=== PATIENT | male | born 1985 | race Two or more races ===

== ENCOUNTER 2019-04-12 16:25 | Inpatient (IN) | payer BC, OTHER ==
[2019-04-12 19:08] LABS: #Lymphocytes 1.8 thou/uL (1.20-3.40); #Monocytes 0.9 thou/uL (0.11-0.59); #Neutrophils 9.5 thou/uL (1.40-6.50); %Basophils 0.1 % (0.0-1.0); %Eosinophils 0.1 % (0.0-10.0); %Lymphocytes 14.8 % (21.0-51.0); %Monocytes 7.3 % (0.0-10.0); %Neutrophils 77.8 % (42.0-75.0); Hemoglobin 13.2 g/dL (14.0-18.0); Mean Corpuscular HGB CONC 32.2 g/dL (32.0-36.0); Mean Corpuscular Hemoglobin 27.7 pg (27.0-31.0); Mean Corpuscular Volume 86.1 fL (78.0-98.0); Mean Platelet Volume 7.7 fL (7.4-10.4); Platelet Count 196 thou/uL (130-400); RBC Distribution Width 11.8 % (11.5-14.5); Red Blood Cell (RBC) Count 4.75 mill/uL (4.70-6.10); White Blood Cell (WBC) Count 12.2 thou/uL (4.8-10.8)
[2019-04-12] MEDS ORDERED: Lidocaine 1% (PF) 30 ML VIAL ONE (19:20)
[2019-04-12 19:32] LABS: ALT (SGPT) 33 U/L (8-55); AST (SGOT) 21 U/L (5-34); Albumin 4.3 g/dL (3.5-5.0); Alkaline Phosphatase 73 U/L (40-110); Anion Gap 14 mmol/L (10-20); BUN (Urea Nitrogen) 10 mg/dL (8.9-20.6); Bilirubin, Total 0.8 mg/dL (0.2-1.2); Calc. Creatinine Clearance 0 mL/min (70-130); Calcium 9.3 mg/dL (7.8-10.44); Carbon Dioxide 28 mmol/L (22-29); Chloride 100 mmol/L (98-107); Estimated GFR-MDRD Greater than 90; Globulin 3.7 g/dL (2.4-3.5); Glucose 109 mg/dL (70-105); Potassium 3.9 mmol/L (3.5-5.1); Sodium 138 mmol/L (136-145)
--- NOTE | 2019-04-12 19:34 | CT ---
CT HEAD WITHOUT IV CONTRAST COMPARISON: None HISTORY: Headache this started 2 days ago. TECHNIQUE: Axial CT imaging at 5 mm intervals from vertex through skull base without contrast FINDINGS: There is no evidence of an acute infarction, hemorrhage, mass effect, or midline shift. The ventricul ar system is normal in size, shape, and position. There are air-fluid level seen in each sphenoid sinus as well as involving the left sphenoid sinus. T here is mucosal thickening seen throughout the paranasal sinuses. Mastoid air cells are clear. Osseous structures appear intact. IMPRESSION: 1. No acute intracranial abnormality demonstrated. 2. Branch sinus disease with air-fluid levels in each maxillary antrum and in the left sphenoid sinus. T his is overall nonspecific but can be seen with acute sinusitis.
[2019-04-12] MEDS ORDERED: Lidocaine 1% w/Epinephrine 1:100K 20 ML VIAL ONE (19:35)
[2019-04-12] MEDS ORDERED: Dexamethasone 10 MG/ML VIAL ONE (20:06)
[2019-04-12] MEDS ORDERED: cefTRIAXone\\ROCEPHIN 2 GM VIAL ONE (20:06)
[2019-04-12 20:41] LABS: Color Of CSF Supernatant COLORLESS (Colorless); Tube # 2; Unspun CSF Color COLORLESS (Colorless)
[2019-04-12 20:54] LABS: CSF, Glucose 66 mg/dl (40-70); CSF, Protein 88 mg/dL (15-40)
[2019-04-12 21:16] LABS: CSF Source CSF; Clarity Hazy (Clear); Tube # 1; Tube # 4
[2019-04-12 21:19] LABS: Cell Count Non Hematic 6 %; Lymphocytes 8 %; Segmented Neutrophils 86 %
[2019-04-12 21:20] LABS: Cell Count Non Hematic 17 %; Lymphocytes 8 %; Segmented Neutrophils 75 %
[2019-04-12] MEDS ORDERED: Metoclopramide HCl 10 MG/2 ML VIAL ONE (22:06)
[2019-04-12] MEDS ORDERED: diphenhydrAMINE 50 MG/ML VIAL ONE (22:06)
[2019-04-13] MEDS ORDERED: Acetaminophen 325 MG TAB PO PRN (00:19)
[2019-04-13] MEDS ORDERED: Ondansetron PF 4 MG/2 ML Vial IVP PRN ×2 (00:19→00:25)
[2019-04-13] MEDS ORDERED: Ondansetron ODT 4 MG TAB SL PRN (00:19)
[2019-04-13] MEDS ORDERED: Ondansetron ODT 4 MG TAB PO PRN (00:25)
[2019-04-13] MEDS ORDERED: HYDROcodone/Acetaminophen 5/325 mg Tablet PO PRN (00:25)
[2019-04-13] MEDS ORDERED: Acetaminophen 500 MG TAB PO PRN (00:25)
[2019-04-13] MEDS: Sodium Chloride 0.9% 1,000 ML IV SCH ×2 (01:05→11:04)
--- NOTE | 2019-04-13 01:51 | HP ---
PRIMARY CARE PROVIDER: Dr. Natalie Pina. CHIEF COMPLAINT: Headache and nasal congestion. HISTORY OF PRESENT ILLNESS: This is a 33-year-old male who presents to [facility] Emergency Department complaining of 3- to 4-day history of nasal congestion, cold symptoms, fever, and headache in the last 48 hours. The patient denied any known sick contacts and states he felt like he had flu or cold symptoms, which began approximately 72 hours prior to this evaluation. The patient received influenza vaccination in February 2019. 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 The patient took bjxx-ryq-shaycra remedies including NyQuil and DayQuil without specific relief of his symptoms. The patient noted tremendous headache and neck pain increasing in the last 24 hours. The patient also admitted to some mild photophobia and decided to seek medical attention at [facility]. The patient was evaluated and given his clinical presentation and neck pain, concern for meningitis was entertained at which point, the patient was referred to [facility] Emergency Department. The patient underwent CT imaging of the brain showing a pansinusitis with air-fluid levels in each maxillary antrum. The patient received IV vancomycin, Rocephin, dexamethasone, intravenous normal saline and Reglan after undergoing lumbar puncture. CSF evaluation showed segmented neutrophils with a total protein of 88 and a glucose of 66. The patient was treated for suspected bacterial meningitis and referred to the Hospitalist Service for further evaluation. The patient denies any known prior similar presentation and states overall he is generally healthy. PAST MEDICAL HISTORY: 1. Incision and drainage of a superficial skin abscess with MRSA isolated in 2008. 2. Cyst removal from the spine. 3. ADHD/depression. 4. Asthma. PAST SURGICAL HISTORY: 1. Status post cyst removal from the spine. 2. Status post incision and drainage of superficial abscess of the right lower extremity. CURRENT MEDICATIONS: Albuterol 90 mcg, 1-2 inhalations q.6 p.r.n. ALLERGIES: NO KNOWN DRUG ALLERGIES. FAMILY HISTORY: No inheritable diseases per patient report. SOCIAL HISTORY: , accompanied by his in the hospital. Resides in [place], [place]. 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 Smokes up to half a pack of cigarettes daily. Occasional alcohol use. No illicit drug use. Functional of all activities of daily living. No recent travel history. REVIEW OF SYSTEMS: CONSTITUTIONAL: Negative for weight loss or gain, ability to conduct usual activities. SKIN: Negative for rash, itching. EYES: Negative for double vision, pain. ENT/MOUTH: Negative for nose bleeding, neck stiffness, pain, tenderness. CARDIOVASCULAR: Negative for palpitations, dyspnea on exertion, orthopnea. RESPIRATORY: Negative for shortness of breath, wheezing, cough, hemoptysis, fever or night sweats. GASTROINTESTINAL: Negative for poor appetite, abdominal pain, heartburn, nausea, vomiting, constipation, or diarrhea. GENITOURINARY: Negative for urgency, frequency, dysuria, nocturia. MUSCULOSKELETAL: Negative for pain, swelling. NEUROLOGIC/PSYCHIATRIC: Negative for anxiety, depression. ALLERGY/IMMUNOLOGIC: Negative for skin rash, bleeding tendency. Otherwise, negative except as stated per HPI. PHYSICAL EXAMINATION: VITAL SIGNS: On admission, blood pressure 124/80, pulse 81, respiratory rate is 20, temperature 98.6 degrees Fahrenheit, and O2 saturation 98% on room air. GENERAL APPEARANCE: This is a 33-year-old male, alert and oriented x3, pleasant, responsive, and in no acute distress. HEENT: Pupils are equal, round, reactive to light and accommodation. Extraocular muscles are intact. No scleral icterus. No conjunctival injection. Nares patent. OP is clear. Teeth in good repair. No oral lesions or erythema noted. NECK: Supple. No cervical adenopathy. No thyromegaly. No carotid bruits. Mild tenderness to palpation in the paravertebral musculature in the cervical spine and suboccipital region. No meningeal signs noted. CHEST: Lungs are clear to auscultation bilaterally. CARDIOVASCULAR: S1, S2 without noted murmur, rub, or gallop. ABDOMEN: Flat, soft, nontender, and nondistended. Bowel sounds are positive in all 4 quadrants. There is no hepatosplenomegaly. No abdominal bruits. No rebound or guarding appreciated. EXTREMITIES: Warm and dry with good turgor. No clubbing, cyanosis, or asymmetric edema appreciated. Pulses palpable distally at the dorsalis pedis, posterior tibial, and popliteal arteries bilaterally. Capillary refill less than 2 seconds. SKIN: No focal or generalized rash noted. No petechiae noted. PERTINENT LABORATORY AND X-RAY FINDINGS: Complete metabolic profile within normal limits. Lactic acid level 1.0. CBC showed a white blood cell count of 12.2, hemoglobin 13, hematocrit 41, platelet count 196 with 78% neutrophilia. CSF analysis showed 75%-86% neutrophils. Glucose 66. Total protein 88. Gram stain of cerebral spinal fluid on 04/12/2019 showed no organisms with WBCs. CT of the brain without contrast dated 04/12/2019 showed pansinusitis without acute intracranial process. ASSESSMENT AND PLAN: 1. Community-acquired bacterial meningitis. The patient will be admitted to the medical floor with suspicion for bacterial meningitis given CSF sample results. Continue Rocephin 2 g IV q.12 hours with additional vancomycin 1.25 g IV q.8 hours. Dexamethasone given in the Emergency Department. Continue intravenous normal saline 100 mL/h. Await final CSF culture results. Consult Infectious Disease Service in the a.m. for any further recommendations. Continue contact and respiratory isolation. 2. Pansinusitis. We will continue Rocephin and vancomycin as outlined in number one. We will convert to oral antibiotic regimen for outpatient completion of treatment. Add Zyrtec 10 mg daily. 3. Asthma. Mild and intermittent. Continue supportive management. No evidence of acute exacerbation. 4. Depression. Continue general supportive management. Family support at the bedside. 5. Prophylaxis. SCDs while in bed. Pepcid 20 mg p.o. b.i.d. Respiratory and contact isolation. CODE STATUS: Full. Surrogate medical decision maker is the patient's spouse. Job ID: [id number]
[2019-04-13 02:10] VITALS: BMI 22.4
[2019-04-13] MEDS: Ketorolac Tromethamine 30 MG/ML VIAL IVP SCH ×4 (05:43→23:57)
[2019-04-13] MEDS: Vancomycin HCl 1.25 GM in Sodium Chloride 0.9% 250 ML 250 ML IVPB SCH ×2 (05:44→14:08)
[2019-04-13 06:16] LABS: Band 6 % (5-11); Hemoglobin 12.8 g/dL (14.0-18.0); Lymphocytes 10 % (21-51); MDiff Complete? YES; Mean Corpuscular HGB CONC 32.6 g/dL (32.0-36.0); Mean Platelet Volume 8.2 fL (7.4-10.4); Monocytes 2 % (0-10); Neutrophil 82 % (42-75); Platelet Count 200 thou/uL (130-400); Platelet Morphology Comment Appears Adequate; RBC Distribution Width 11.8 % (11.5-14.5); RBC Morphology Normal; Red Blood Cell (RBC) Count 4.58 mill/uL (4.70-6.10); White Blood Cell (WBC) Count 10.5 thou/uL (4.8-10.8)
[2019-04-13 06:31] LABS: Anion Gap 12 mmol/L (10-20); BUN (Urea Nitrogen) 11 mg/dL (8.9-20.6); Calc. Creatinine Clearance 138 mL/min (70-130); Calcium 8.8 mg/dL (7.8-10.44); Carbon Dioxide 26 mmol/L (22-29); Chloride 103 mmol/L (98-107); Estimated GFR-MDRD Greater than 90; Glucose 160 mg/dL (70-105); Sodium 137 mmol/L (136-145)
[2019-04-13] MEDS: Loratadine 10 MG TAB PO SCH (08:26)
[2019-04-13] MEDS: Famotidine 20 MG TAB PO SCH ×2 (08:26→20:02)
[2019-04-13] MEDS ORDERED: Cetirizine HCl 10 MG TAB PO SCH (09:00)
--- NOTE | 2019-04-13 15:27 | CON ---
DATE OF CONSULTATION: 04/13/2019 REASON FOR CONSULTATION: Meningitis. HISTORY OF PRESENT ILLNESS: A 33-year-old with history of asthma, who developed fever and some rhinorrhea over the past week along with similar illness in the family, number of children became ill with sore throat and upper respiratory symptoms and low-grade fever. The fever resolved and then the next day, he developed quite severe headache, end up admitted and had a spinal fluid evaluation, which is discussed below. He was started on broad-spectrum coverage. He is currently awake and totally alert, feeling better, still with some headaches. No visual symptoms, sore throat, odynophagia, or dysphagia. No dental pain. The neck stiffness has resolved. No cough, sputum production, or chest pain. No abdominal pain or diarrhea. No genitourinary symptoms. No joint symptoms. No skin disorder. PAST MEDICAL HISTORY: MRSA skin abscess in 2008 while in the [employer], cyst removal from spine, ADHD, and asthma. PAST SURGICAL HISTORY: As above. ALLERGIES: NONE. FAMILY HISTORY: Upper respiratory tract illness in entire family past week with fever. 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 Still smoking. No alcoholic beverage use or drug use. CURRENT MEDICATIONS: 1. P.R.N. medications. 2. Ceftriaxone. 3. Vancomycin. PHYSICAL EXAMINATION: VITAL SIGNS: T-max 98.1, blood pressure 113/71, pulse 67, respirations 18, and O2 saturation 96. SKIN: Not remarkable. Peripheral IV access. He is voiding spontaneously. No lymphadenopathy. HEENT: Ocular movements conjugate. Sclerae white. Oral cavity normal. Teeth in excellent shape. NECK: Supple. No jugular vein distention. LUNGS: Symmetric clear breath sounds. HEART: S1 and S2. Regular rate. No S3 or S4. ABDOMEN: Soft, not distended or tender. No ascites. No bladder distention. EXTREMITIES: No joint inflammatory activity. NEURO: Nonfocal. LABORATORY DATA: White cell count is 12.2 and 10.5, hemoglobin 13, and platelets 196. Chemistry is essentially normal. Glucose is a bit high and now is 160 and globulin 3.7. Two sets of blood cultures pending. His spinal fluid evaluation with a 1016 nucleated cells with a predominance of neutrophils 75, an 8% lymphocytes, protein was 88, and glucose was normal at 66. ASSESSMENT: Asthma and acute meningitis. DISCUSSION: Differential diagnosis includes viral meningitis versus bacterial versus other forms of meningitis. Need to rule out HIV infection and syphilis, viral meningitis more likely, particularly herpes simplex. Bacterial meningitis is less likely in view of the benign clinical course in the absence of hypoglycorrhachia. Discontinue vancomycin and probably discontinue Rocephin by tomorrow if cultures remain negative. Check virus PCR and CSF and HIV serology, syphilis serology. Job ID: [id number]
--- NOTE | 2019-04-13 16:29 | PDOC.HOSPP ---
- Subjective Encounter Date: 04/13/19 Encounter Time: 16:28 Subjective: Mr. Qiu was seen today in follow-up of menigitis. He says the headache is much improved. - Objective Vital Signs & Weight: Vital Signs (12 hours) Temp Pulse Resp BP BP Pulse Ox 04/13/19 15:47 97.9 F 82 17 113/71 96 04/13/19 11:22 97.8 F 67 18 113/71 96 04/13/19 08:00 97.7 F 77 19 94/58 L 95 04/13/19 04:45 97.2 F L 85 18 113/77 95 Weight Weight 161 lb I&O: 04/12/19 04/13/19 04/14/19 06:59 06:59 06:59 Intake Total 500 Balance 500 Result Diagrams: 04/13/19 05:47 04/13/19 05:47 Hospitalist ROS - Medication Medications: Active Medications Generic Name Dose Route Start Last Admin Trade Name Freq PRN Reason Stop Dose Admin Famotidine 20 mg 04/13/19 09:00 04/13/19 08:26 Pepcid PO 20 mg BID LION Administration Sodium Chloride 1,000 mls @ 100 mls/hr 04/13/19 00:30 04/13/19 11:04 Normal Saline 0.9% IV 1,000 mls .Q10H LION Administration Ketorolac Tromethamine 30 mg 04/13/19 06:00 04/13/19 11:04 Toradol IVP 04/18/19 06:01 30 mg Q6HR LION Administration Loratadine 10 mg 04/13/19 09:00 04/13/19 08:26 Claritin PO 10 mg DAILY LION Administration Sodium Chloride 10 ml 04/13/19 09:00 04/13/19 08:24 Flush - Normal Saline IVF Not Given Q12HR LION - Exam Eye: PERRL, anicteric sclera ENT: normocephalic atraumatic, no oropharyngeal lesions Heart: RRR, no murmur, no gallops, no rubs, normal peripheral pulses Respiratory: CTAB, no wheezes, no rales, no ronchi, normal chest expansion Gastrointestinal: soft, non-tender, non-distended, normal bowel sounds Extremities: no cyanosis, no clubbing, no edema Skin: no rashes Neurological: no focal deficits Hosp A/P (1) Meningitis Code(s): G03.9 - MENINGITIS, UNSPECIFIED Status: Acute - Plan * Acute Menigitis- ID input appreciated- probable viral menigitis * Serologies for HIV and Syphilis are pending * Await final CSF culture results
[2019-04-13 16:48] LABS: Syphilis Antibody Nonreactive (Nonreactive); Syphilis Antibody Index 0.04 S/CO (<1.00 Non-Reactive)
[2019-04-13 16:49] LABS: HIV (1/2) Antibody/Antigen Non-Reactive (NonReactive); HIV 1/2 INDEX 0.16 S/CO (<1.00)
[2019-04-13] MEDS ORDERED: cefTRIAXone\\ROCEPHIN 2 GM in Sodium Chloride 0.9% 100 ML IVPB SCH (21:00)
[2019-04-14] MEDS: Sodium Chloride 0.9% 1,000 ML IV SCH ×2 (00:25→09:52)
[2019-04-14] MEDS: Ketorolac Tromethamine 30 MG/ML VIAL IVP SCH ×2 (05:41→12:29)
[2019-04-14] MEDS: Loratadine 10 MG TAB PO SCH (09:45)
[2019-04-14] MEDS: Famotidine 20 MG TAB PO SCH (09:46)
--- NOTE | 2019-04-14 12:02 | PDOC.HOSPP ---
- Subjective Encounter Date: 04/14/19 Encounter Time: 12:00 Subjective: Mr. Qiu was seen today in follow-up. He says he feels great. He does not have any headache, or neck pain. - Objective Vital Signs & Weight: Vital Signs (12 hours) Temp Pulse Resp BP Pulse Ox 04/14/19 08:00 97.9 F 62 18 112/72 95 04/14/19 04:00 97.6 F 72 18 100/64 95 Weight Weight 161 lb I&O: 04/13/19 04/14/19 04/15/19 06:59 06:59 06:59 Intake Total 500 1105 240 Balance 500 1105 240 Result Diagrams: 04/13/19 05:47 04/13/19 05:47 Hospitalist ROS - Medication Medications: Active Medications Generic Name Dose Route Start Last Admin Trade Name Freq PRN Reason Stop Dose Admin Famotidine 20 mg 04/13/19 09:00 04/14/19 09:46 Pepcid PO 20 mg BID LION Administration Ceftriaxone Sodium 2 gm/ 100 mls @ 200 mls/hr 04/13/19 21:00 04/13/19 20:02 Sodium Chloride IVPB 100 mls Q24HR LION Administration Sodium Chloride 1,000 mls @ 100 mls/hr 04/13/19 00:30 04/14/19 09:52 Normal Saline 0.9% IV 1,000 mls .Q10H LION Administration Ketorolac Tromethamine 30 mg 04/13/19 06:00 04/14/19 05:41 Toradol IVP 04/18/19 06:01 30 mg Q6HR LION Administration Loratadine 10 mg 04/13/19 09:00 04/14/19 09:45 Claritin PO 10 mg DAILY LION Administration Sodium Chloride 10 ml 04/13/19 09:00 04/14/19 09:54 Flush - Normal Saline IVF Not Given Q12HR LION - Exam Eye: PERRL, anicteric sclera Heart: RRR, no murmur, no gallops, no rubs, normal peripheral pulses Respiratory: CTAB, no wheezes, no rales, no ronchi, normal chest expansion, no tachypnea, normal percussion Gastrointestinal: soft, non-tender, non-distended, normal bowel sounds, no palpable masses, no hepatomegaly Extremities: no cyanosis, no clubbing, no edema Neurological: no focal deficits Psychiatric: A&O x 3 Hosp A/P (1) Meningitis Code(s): G03.9 - MENINGITIS, UNSPECIFIED Status: Acute - Plan * Acute Viral Menigitis- much improved * Stable for discharge home
[2019-04-14 12:13] VITALS: BP 124/82; TEMP 97.6
--- NOTE | 2019-04-14 16:21 | DIS ---
DATE OF ADMISSION: 04/13/2019 DATE OF DISCHARGE: 04/14/2019 PRIMARY CARE PHYSICIAN: The patient does not have a primary care physician. DISCHARGE DISPOSITION: Home. DISCHARGE DIAGNOSES: 1. Acute viral meningitis. 2. History of attention deficit disorder. 3. Asthma. DISCHARGE MEDICATIONS: He is to continue Concerta 54 mg daily and ProAir inhaler one puff as needed. PROCEDURES DONE DURING ADMISSION: The patient had a CT scan of the brain, which showed no acute intracranial abnormalities. There was some evidence of pansinusitis with air-fluid levels in each maxillary antrum and in the left sphenoid. The patient also had a lumbar puncture. In tube #1, the CSF was hazy. There was 86% neutrophils. The glucose level was 66, but the total protein was 88. Cultures were negative. He also had syphilis titer, which was nonreactive and HIV-1 and HIV-2, which were nonreactive. CODE STATUS: Full code. ALLERGIES: NO KNOWN DRUG ALLERGIES. HOSPITAL COURSE: Mr. Qiu is a pleasant 33-year-old gentleman, who was admitted to the hospital after having a severe headache as well as fever. He also was noted to have some nuchal rigidity on exam and for this reason, he was transferred to our facility to rule out meningitis. He was evaluated, underwent lumbar puncture. The LP findings are as mentioned, and he also had Gram-stain and culture performed, which was negative. His clinical course and CSF fluid was most consistent with a viral meningitis. He began to improve after a day in the hospital. He was monitored one more day to follow up with the culture results and at the time of discharge, he was completely back to his baseline. He was headache free with no neck stiffness and will be discharged home. He has been instructed to follow up with Dr. Rosa in 1 to 2 weeks and also to establish a primary care physician in the area. Job ID: [id number]
--- NOTE | 2019-04-15 20:49 | PQF ---
[employer] War[employer] Creeler Crystal Reports Winform ViewerCLEOPATRA MILLS TONI MD [id number] [id number] CLINICAL DOCUMENTATION CLARIFICATION FORM: POST DISCHARGE Addendum to original discharge summary date: ____ Late entry note date: __ DATE: 04/15/19 ATTN: Romero Contreras Please exercise your independent, professional judgment in responding to the clarification form. Clinical indicators are provided on the bottom of this form for your review Can you please further clarify the diagnosis of the patient based on the clinical indicators below? Please check appropriate box(es): [ ] Sepsis due to: (Pna, UTI, Viral meningitis, etc.) __ [ ] SIRS due to non-infectious process (please specify etiology) [X ] Localized infection without sepsis [ ] Other diagnosis [ ] Unable to determine In addition, please specify: Present on Admission (POA): [ X] Yes [ ] No [ ] Unable to determine For continuity of documentation, please document condition throughout progress notes and discharge summary. Thank You. CLINICAL INDICATORS - SIGNS / SYMPTOMS / LABS H and P pg.1- history of nasal congestion,cold symptoms, fever and headache in the last 48 hours H and P pg.3- Lactic acid level 1.0, CBC showed white blood count of 12.2 DS pg.1- admitted to the hospital after having a severe headache as well as fever DS pg.1- CSF fluids- Consistent with a viral meningitis RISK FACTORS Acute viral meningitis- DS pg.1 Asthma- DS pg.1 TREATMENTS: Infectious Consult- Dr. Rosa 04/13 Lumbar Puncture- ED provide pg.8 CT Brain 04/12 IV fluids- MAY IV Antibiotics- MAY (This form is maintained as a part of the permanent medical record) 2014 [employer], [employer]. All Rights Reserved [email or web address]
== END 2019-04-14 13:24 | disposition home or self-care (01) | DRG 76 ==
LOC: ERS 16:25 → T4-A 04-13 00:12
PROVIDERS: ADMIT Family Medicine; ATTEND Emergency Medicine
PROC: 009U3ZX Drainage of Spinal Canal, Percutaneous Approach, Diagnostic (ICD-10-PCS; principal; 2019-04-13)
DX: A87.9 Viral meningitis, unspecified (principal); F90.9 Attention-deficit hyperactivity disorder, unspecified type; J45.20 Mild intermittent asthma, uncomplicated; J32.4 Chronic pansinusitis; F31.9 Bipolar disorder, unspecified; H53.149 Visual discomfort, unspecified; Z87.891 Personal history of nicotine dependence; Z79.51 Long term (current) use of inhaled steroids
CPT/HCPCS: 36415; 62270; 70450; 80048; 80053; 82945; 83605; 84157; 85007; 85025; 85027; 85060; 86780; 87040; 87070; 87205; 87389; 87498; 87529; 89051; 96361; 96365; 96367; 96375; J0696; J1100; J1200; J1885; J2001; J2765; J3370; J3490; J7050

== ENCOUNTER 2019-06-27 04:24 | Emergency (ER) | payer BC, SELFPAY | END 2019-06-27 06:50 | disposition home or self-care (01) | LOC: ERS 04:24 | DX: R04.0 Epistaxis (principal); F90.9 Attention-deficit hyperactivity disorder, unspecified type; J45.909 Unspecified asthma, uncomplicated; F17.210 Nicotine dependence, cigarettes, uncomplicated | CPT/HCPCS: 99283 ==

== ENCOUNTER 2020-09-28 19:47 | Emergency (ER) | payer SELFPAY | END 2020-09-28 21:12 | disposition left against medical advice (07) | LOC: ERS 19:47 | DX: Z53.21 Procedure and treatment not carried out due to patient leaving prior to being seen by health care provider (principal) | CPT/HCPCS: 93005 ==

== ENCOUNTER 2021-01-14 22:03 | Emergency (ER) | payer SELFPAY ==
[2021-01-14] MEDS ORDERED: predniSONE 20 MG TAB ONE (22:57)
== END 2021-01-14 23:43 | disposition home or self-care (01) ==
LOC: ERS 22:03
DX: J45.901 Unspecified asthma with (acute) exacerbation (principal); F17.290 Nicotine dependence, other tobacco product, uncomplicated
CPT/HCPCS: 94644; J7512; J7620

== ENCOUNTER 2021-09-06 17:23 | Emergency (ER) | payer BC, SELFPAY | END 2021-09-06 20:37 | disposition home or self-care (01) | LOC: ERS 17:23 | DX: J45.901 Unspecified asthma with (acute) exacerbation (principal); F17.200 Nicotine dependence, unspecified, uncomplicated | CPT/HCPCS: 94640; J7620 ==

== ENCOUNTER 2022-02-06 21:12 | Emergency (ER) | payer BC ==
[2022-02-06] MEDS ORDERED: predniSONE 20 MG TAB ONE (21:27)
== END 2022-02-06 21:39 | disposition home or self-care (01) ==
LOC: ERS 21:12
DX: J45.901 Unspecified asthma with (acute) exacerbation (principal)
CPT/HCPCS: 99284; J7512